=== PATIENT | female | born 1990 | race Caucasian/White ===

== ENCOUNTER 2021-04-14 21:49 | Emergency (ER) | payer OTHER, BC ==
[~2021-04-14] VITALS: Ht 175.3 cm; Wt 71.0 kg
[2021-04-14 22:07] VITALS: BP 117/80
[2021-04-14 22:44] LABS: BACTERIA,URINE FEW /HPF (0-FEW); BILIRUBIN,URINE NEG (NEG); CLARITY,URINE CLEAR; COLOR,URINE YELLOW; GLUCOSE,URINE NEG (NEG); NITRITE,URINE POS (NEG); RBC,URINE 0 /HPF (0-2); SQUAMOUS EPITHELIAL CELL,UR OCC /LPF; UROBILINOGEN,URINE 0.2 mg/dL (0.2 mg/dL)
[2021-04-14 22:45] LABS: U PREG PATIENT NEGATIVE (NEG)
[2021-04-14] MEDS ORDERED: CEPHALEXIN 250 MG CAPSULE PO ONE (23:15)
[2021-04-14] MEDS ORDERED: CEPH-281 PO (23:28)
--- NOTE | 2021-04-14 23:30 | PHYS DOC ---
Past History Past Medical History: No Pertinent History Past Surgical History: No Surgical History, Other Additional Past Surgical Histo: right lower rib removal General Adult EDM: Chief Complaint: URINARY FREQUENCY HPI: HPI: 30-year-old female comes to the emergency department complaining of several days of burning dysuria that was worse this evening, she denies any nausea or vomiting, no abdominal pain, she is breast-feeding currently, no vaginal bleeding or discharge Review of Systems: Review of Systems: General: no fevers , no chills, no general weakness Eyes: no blurred vision, no diplopia Skin: no rashes Neck: no swelling, no neck stiffness, no neck pain Heme: no bleeding, no lymph node enlargement Ear/Nose/Throat: No sore throat, no runny nose, no hearing loss, no difficulty swallowing Cardiovascular: no Chest pain, no palpitations Respiratory: No dyspnea, no cough, no hemoptysis Gastrointestinal: No abdominal pain, no nausea, no vomiting, no diarrhea, no blood in stool Genitourinary: no dysuria, no hematuria, positive for dysuria Musculoskeletal: no back pain, no leg pain, no arm pain, no arthralgia Neurologic: no headaches, no dizziness, no focal numbness/tingling, no focal weakness Psych: no depression, no anxiety, no SI/HI *All review of systems are negative other than what is noted above Current Medications: Current Meds: Current Medications Medications (Trade) Dose Ordered Sig/Joycelyn Start Time Stop Time Status Last Admin Dose Admin Cephalexin HCl (Keflex) 500 mg 1X ONCE 04/14/21 23:15 04/14/21 23:16 DC 04/14/21 23:15 500 MG Allergies: Allergies: Allergies Coded Allergies Type Severity Reaction Last Updated Verified No Known Drug Allergies 04/14/21 No Physical Exam: PE: Gen-well appearing, no acute distress Head- normocephalic/atraumatic ENT: atraumatic, oropharynx clear neck: Supple, full range of motion, strength, no rigidity, no JVD lungs: No distress, speaks in full sentences cardiovascular: Regular rate, no JVD, peripheral circulation intact in all extremities abdomen: atraumatic, nondistended, nontender to palpation musculoskeletal: Full range of motion and strength in all extremities, atraumatic skin: Intact, no rashes neurologic: Alert and oriented x4, no focal deficits psych: Normal mood and affect Current Patient Data: Labs: Laboratory Tests Test 04/14/21 22:15 04/14/21 22:31 Urine Collection Type Unknown Urine Color Yellow Urine Clarity Clear Urine pH 5.5 Urine Specific [place] <=1.005 Urine Protein Neg (NEG-TRACE) Urine Glucose (UA) Neg mg/dL (NEG) Urine Ketones (Stick) Neg mg/dL (NEG) Urine Blood Trace (NEG) Urine Nitrite Pos (NEG) Urine Bilirubin Neg (NEG) Urine Urobilinogen Dipstick 0.2 mg/dL (0.2 mg/dL) Urine Leukocyte Esterase Small (NEG) Urine RBC 0 /HPF (0-2) Urine WBC 5-10 /HPF (0-4) Urine Squamous Epithelial Cells Occ /LPF Urine Bacteria Few /HPF (0-FEW) Urine Test Negative (NEG) POC Urine HCG, Qualitative hcg negative (Negative) Vital Signs: Vital Signs Date Time Temp Pulse Resp B/P (MAP) Pulse Ox O2 Delivery O2 Flow Rate FiO2 04/14/21 22:07 97.7 61 18 117/80 99 Room Air EKG: EKG: [] Radiology/Procedures: Radiology/Procedures: [] Heart Score: C/O Chest Pain: No Risk Factors: Risk Factors: DM, Current or recent (<one month) smoker, HTN, HLP, family history of CAD, obesity. Risk Scores: Score 0 - 3: 2.5% MACE over next 6 weeks - Discharge Home Score 4 - 6: 20.3% MACE over next 6 weeks - Admit for Clinical Observation Score 7 - 10: 72.7% MACE over next 6 weeks - Early Invasive Strategies Course & Med Decision Making: Course & Med Decision Making Pertinent Labs and Imaging studies reviewed. (See chart for details) [] Patient presented to the emergency department with dysuria, urinalysis was sent on arrival, does have some bacteria and white blood cells, clinically consistent with a lower cystitis, no signs of any clinically significant pyelonephritis, abdomen nontender, unlikely any acute intra-abdominal surgical pathology, unlikely any acute gynecologic pathology, plan is for prescription for antibiotics and close outpatient primary care follow-up Patient was seen in the ED for a case of cystitis, there is no apparent evidence of any emergency medical pathology at this time, patient was advised follow-up with their primary care provider /physician in the next 24-48 hours and to return to the ED before then if any new or worsening / concerning symptoms had developed. All questions and concerns were addressed at time of disposition Sheila Disclaimer: Sheila Disclaimer: This electronic medical record was generated, in whole or in part, using a voice recognition dictation system. Departure Departure: Impression: Primary Impression: Cystitis Disposition: HOME / SELF CARE / HOMELESS Condition: GOOD Referrals: NON,STAFF (PCP) Patient Instructions: Urinary Tract Infection Additional Instructions: You have a urinary tract infection, I am giving you a prescription for antibiotics that are safe in breast-feeding, this will not be dangerous to the baby, please drink plenty of fluids a common culprit of urinary tract infections is inadequate water intake, please follow with your primary care doctor/provider in the next 48 hours and return to the nearest emergency room be fore then if any new or worsening/concerning symptoms develop Scripts Cephalexin (CEPHALEXIN) 250 Mg Capsule 1 CAP PO QID for keflex, #40 CAP Prov: HOLLY ESQUEDA MD 04/14/21 HOLLY ESQUEDA MD Apr 14, 2021 23:30
== END 2021-04-14 23:36 | disposition home or self-care (01) ==
LOC: ER 21:49
DX: N30.90 Cystitis, unspecified without hematuria (principal)
CPT/HCPCS: 81001; 81025; 87086; 99283